=== PATIENT | male | born 1985 | race Two or more races ===

== ENCOUNTER 2024-01-23 20:48 | Emergency (ER) | payer OTHER ==
[~2024-01-23] VITALS: Ht 177.8 cm; Wt 96.1 kg
[2024-01-23 21:16] VITALS: BP 139/93; PULSE 101; RESP 18; O2SAT 98
[2024-01-23] MEDS ORDERED: CYCL-837 PO (22:15)
[2024-01-23] MEDS ORDERED: IBUP-1456 PO (22:15)
== END 2024-01-23 22:53 | disposition home or self-care (01) ==
LOC: ER 20:48
DX: S63.501A Unspecified sprain of right wrist, initial encounter (principal); S16.1XXA Strain of muscle, fascia and tendon at neck level, initial encounter; V89.2XXA Person injured in unspecified motor-vehicle accident, traffic, initial encounter; Y93.89 Activity, other specified; Y92.89 Other specified places as the place of occurrence of the external cause; Y99.8 Other external cause status; Z88.0 Allergy status to penicillin
CPT/HCPCS: 72040; 73110